=== PATIENT | female | born 1940 | race Caucasian/White ===

== ENCOUNTER 2023-11-15 11:33 | Emergency (ER) | payer MEDICARE, OTHER, SELFPAY ==
[2023-11-15 11:35] VITALS: BP 211/111
--- NOTE | 2023-11-15 11:52 | ED.GENMED ---
History of Present Illness
<Dottie Valdovinos PA-C - Last Filed: 11/15/23 14:46>
General
Chief Complaint: Fall
Source: patient
Exam Limitations: none
Time Seen by Provider: 11/15/23 11:52
Nursing documentation reviewed up to this point in time: agreed with
History of Present Illness
History of Present Illness:
This is a 83 y/o female with a PMH of HTN (no longer on medication) presenting to the emergency department today with concerns of headache and neck pain following a fall. Patient reports that her bathroom is right by her bed and at around 4:00 am
this morning, she was getting out of bed when she caught her foot in the sheet and fell forward, hitting her face on the cabinet. Patient now complains of a frontal headache, neck pain, and pain in her face and cheeks. Patient denies any visual
loss, eye pain, vomiting. Patient did have a brief episode of nausea. Patient denies any dizziness or lightheadedness, chest pain or shortness of breath. Patient denies any pain in her upper or lower extremities. Patient able to ambulate without
difficulty. Patient denies any injuries to anywhere else in her body. Patient does not take a blood thinner.
Review of Systems
<Dottie Valdovinos PA-C - Last Filed: 11/15/23 14:46>
Review of Systems
All Other Systems: ROS reviewed and negative except as documented in HPI and ROS
Phy Exam
<Dottie Valdovinos PA-C - Last Filed: 11/15/23 14:46>
Physical Exam
Physical Exam:
General: Patient is well appearing and in no acute distress
Skin: Warm and dry, bilateral ecchymosis noted to corners of eyes and lower lids.
Head: Frontal hematoma noted. Bilateral TMJ joints intact.
Eyes: Sclera non-icteric. EOMs intact, no entrapment. No proptosis, no scleral injection.
Cardiac: Regular rate, no tenderness to palpation of the external chest wall.
Peripheral Vascular: No lower extremity swelling or edema.
Pulm: Normal respiratory effort
Musculoskeletal: 5/5 strength in bilateral upper and lower extremities. Full ROM of bilateral upper and lower extremities, no pain with passive ROM, no palpable bony deformities.
Neuro: CN II-XII intact, no focal neurologic deficits.
Psychiatric: Appropriate mood and affect.
Course
<Dottie Valdovinos PA-C - Last Filed: 11/15/23 14:46>
Orders/Labs/Results
Orders:
Orders
11/15/23 11:37
EKG [Electrocardiogram (*1)] Urgent
Reason for Study: Tachycardia
EKG- Treatment ONCE
11/15/23 12:15
CT Cervical Spine W/o Iv Contr Urgent
Reason For Exam: neck pain and occipital pain following hyperflexio
CT Facial Bones W/o Iv Contras Urgent
Comment:
Reason For Exam: facial pain following blunt trauma
CT Head W/o Iv Contrast Urgent
Comment:
Reason For Exam: frontal headache following trauma
11/15/23 13:48
Vital Signs- Treatment ONCE
Frequency: Once
11/15/23 14:09
Cervical Collar- Treatment ONCE
Collar Type: Soft Cervical Collar
Vital Signs
Initial and Last Documented VS:
Initial Vital Signs
Temp Pulse Resp BP Pulse Ox
98.8 F 112 18 211/111 99
11/15/23 11:35 11/15/23 11:35 11/15/23 11:35 11/15/23 11:35 11/15/23 11:35
Last Documented Vital Signs
Temp Pulse Resp BP Pulse Ox
98.8 F 78 18 186/78 98
11/15/23 11:35 11/15/23 13:57 11/15/23 13:57 11/15/23 13:57 11/15/23 13:57
<Lucia Leong MD - Last Filed: 11/15/23 14:52>
Orders/Labs/Results
Orders:
Orders
11/15/23 11:37
EKG [Electrocardiogram (*1)] Urgent
Reason for Study: Tachycardia
EKG- Treatment ONCE
11/15/23 12:15
CT Cervical Spine W/o Iv Contr Urgent
Reason For Exam: neck pain and occipital pain following hyperflexio
CT Facial Bones W/o Iv Contras Urgent
Comment:
Reason For Exam: facial pain following blunt trauma
CT Head W/o Iv Contrast Urgent
Comment:
Reason For Exam: frontal headache following trauma
11/15/23 13:48
Vital Signs- Treatment ONCE
Frequency: Once
11/15/23 14:09
Cervical Collar- Treatment ONCE
Collar Type: Soft Cervical Collar
Vital Signs
Initial and Last Documented VS:
Initial Vital Signs
Temp Pulse Resp BP Pulse Ox
98.8 F 112 18 211/111 99
11/15/23 11:35 11/15/23 11:35 11/15/23 11:35 11/15/23 11:35 11/15/23 11:35
Last Documented Vital Signs
Temp Pulse Resp BP Pulse Ox
98.8 F 78 18 186/78 98
11/15/23 11:35 11/15/23 13:57 11/15/23 13:57 11/15/23 13:57 11/15/23 13:57
<Dottie Valdovinos PA-C - Last Filed: 11/15/23 14:46>
MDM/Problems Addressed
Differential Diagnosis Includes:
ddx include orbital fracture, hematoma, concussion, epidural hematoma, subdural hematoma
MDM/Problems Addressed:
Head Injury:
This is a 83 y/o female with a PMH of HTN (no longer on medication) presenting to the emergency department today with concerns of headache and neck pain following a fall. Patient reports that her bathroom is right by her bed and at around 4:00 am
this morning, she was getting out of bed when she caught her foot in the sheet and fell forward, hitting her face on the cabinet. Patient now complains of a frontal headache, neck pain, and pain in her face and cheeks. On exam, she is ecchymosis
on her lower lids bilaterally, and has ecchymosis across her forehead and tenderness of her facial bones. She has no hemotympanum. She also has neck pain with any movement. Her CT scan of the head and neck and facial bones was negative for any
acute intracranial abnormality other than a right frontal hematoma and mild sinusitis. Patient stable for discharge.
Chronic conditions affecting care:
HTN, asthma
Acute Exacerbation and/or Progression of Chronic Illness:
n/a
<Dottie Valdovinos PA-C - Last Filed: 11/15/23 14:46>
*Pulse Oximetry
Patient hypoxic: no
*Critical Care Note
Total Time (30-74mins, 75-104mins- exclusive of procedures): Not Applicable
Data Reviewed
Review of Other/Old Records Reveals: Records (no previous ER physician documentation to review ) and Discharge Summary (no discharge summaries to review )
Source: patient and records
<Dottie Valdovinos PA-C - Last Filed: 11/15/23 14:46>
Patient Management
Escalation/DeEscalation of care consider admission/obs:
Admit not indicated, case reviewed with my attending Dr. Hu.
ED Attending Note
<AIRAM Mcdowell Last Filed: 11/15/23 14:46>
-
Portions of this chart may have been created with voice recognition software.� Occasional wrong word or��sound alike� substitutions may have occurred due to the inherent limitations of voice recognition software.
<Lucia Leong MD - Last Filed: 11/15/23 14:52>
ED Attending Note
Patient seen and examined by attending physician: Yes
I performed the substantive portion of visit, reviewed & personally made and approve the management plan that is documented in note by myself or MARCO A.: Yes
ED Attending Note:
Patient has bilateral periorbital ecchymoses after a fall, however, she is smiling, laughing and conversational. She has 5 out of 5 strength in all extremities without any complaints of tingling or numbness of her extremities. Her lungs are clear
and she is breathing comfortably.
Discharge Plan
Departure
Patient Disposition: Home (Routine Discharge)
Date of Disposition: 11/15/23
Time of Disposition: 14:22
Patient with high blood pressure during this ER visit?: Yes
Condition: Good
Discharge Problem:
Head injury due to trauma
Instructions: Head Injury in Adults (DC), Cervical collars for adults, BLOOD PRESSURE
Referrals:
Jacob Rea MD [Active] - Call in 1-3 days for appt
PRIVATE,PHYSICIAN [Family Provider] -
Activity Restrictions/Additional Instructions:
Please return to emergency department should you develop persistent headache, intractable vomiting, chest pain, shortness of breath, upper extremity numbness or tingling, or any signs or symptoms concerning to you.
Please follow-up with orthopedics. You can call today to schedule an appointment for your neck pain.
Interventions
Interventions:
*Risk Screen - Suicide Last Done: 11/15/23 12:21
*General Assessment Last Done: 11/15/23 11:35
ED- Fall Risk Assessment Last Done: 11/15/23 12:21
*ED COVID-19 Vaccine History Last Done: 11/15/23 11:35
ED-Musculoskeletal Assessment Last Done: 11/15/23 12:21
ED-Skin Assessment Last Done: 11/15/23 12:24
Discharge Date and Time
Print Language: POLISH
[2023-11-15 12:18] VITALS: BMI 22.0
[2023-11-15 13:57] VITALS: BP 186/78
== END 2023-11-15 15:06 | disposition home or self-care (01) ==
LOC: EMR 11:33
PROVIDERS: EMERGENCY PHYSICIAN Emergency Medicine
DX: S09.90XA Unspecified injury of head, initial encounter (principal); M54.2 Cervicalgia; S00.83XA Contusion of other part of head, initial encounter; G44.309 Post-traumatic headache, unspecified, not intractable; W06.XXXA Fall from bed, initial encounter; I10 Essential (primary) hypertension; J45.909 Unspecified asthma, uncomplicated
CPT/HCPCS: 99284; 70450; 70486; 72125; 93005